=== PATIENT | male | born 1985 | race Caucasian/White ===

== ENCOUNTER 2017-11-11 14:58 | Emergency (ER) | payer SELFPAY ==
[~2017-11-11] VITALS: Ht 165.1 cm; Wt 73.0 kg
[2017-11-11 16:09] VITALS: BP 128/82
[2017-11-11 19:43] LABS: HEMATOCRIT. 41.6 % (42.0-52.0); HEMOGLOBIN. 14.9 g/dL (14.0-18.0); MEAN CORPUSCULAR HEMOGLOBIN 29.7 pg (28.0-32.0); MEAN CORPUSCULAR VOLUME 83.3 fL (80.0-94.0); MEAN PLATELET VOLUME 8.6 fl (7.4-10.4); PLATELET 170 x1000/uL (130-400); RED CELL DISTRIBUTION WIDTH 12.8 % (11.6-14.6)
[2017-11-11 19:48] LABS: INR 1.1; PROTHROMBIN TIME 11.1 sec (9.4-11.6)
[2017-11-11 19:49] LABS: CHLORIDE 104 mEq/L (98-107)
[2017-11-11 20:11] LABS: PLATELET ESTIMATE NORMAL
== END 2017-11-11 19:30 | disposition left against medical advice (07) ==
LOC: EDBD → ER 16:14
DX: R19.7 Diarrhea, unspecified (principal)
CPT/HCPCS: 36415; 80053; 83036; 83690; 85025; 85610; 99284

== ENCOUNTER 2017-11-11 21:14 | Emergency (ER) | payer SELFPAY ==
[~2017-11-11] VITALS: Ht 165.1 cm; Wt 69.0 kg
[2017-11-12 00:06] LABS: CLARITY URINE CLEAR (CLEAR); COLOR URINE YELLOW (YELLOW); KETONES URINE 2+ (NEGATIVE); LEUKOCYTE ESTERASE URINE NEGATIVE (NEGATIVE); NITRITE URINE NEGATIVE (NEGATIVE); OCCULT BLOOD URINE NEGATIVE (NEGATIVE); PH URINE 5.5 (4.5-8.0); PROTEIN URINE NEGATIVE (NEGATIVE); SPECIFIC GRAVITY URINE 1.022 (1.005-1.030); UROBILINOGEN URINE 0.2 E.U./dL (0.2-1.0)
[2017-11-12 00:35] VITALS: BP 122/87
[2017-11-12 01:01] LABS: *AMPHETAMINES SCREEN URINE NEGATIVE (NEGATIVE); *BARBITURATES SCREEN URINE NEGATIVE (NEGATIVE); *BENZODIAZEPINES SCREEN URINE NEGATIVE (NEGATIVE); *COCAINE SCREEN URINE NEGATIVE (NEGATIVE)
[2017-11-12 01:02] LABS: CANNABINOID URINE SCREEN NEGATIVE (NEGATIVE); METHADONE URINE SCREEN NEGATIVE (NEGATIVE); OPIATES URINE SCREEN NEGATIVE (NEGATIVE); PHENCYCLIDINE URINE SCREEN NEGATIVE (NEGATIVE)
== END 2017-11-12 00:36 | disposition home or self-care (01) ==
LOC: ER 22:00
DX: R10.9 Unspecified abdominal pain (principal); R19.7 Diarrhea, unspecified
CPT/HCPCS: 80305; 81003; 99284; J7030; Z7610